=== PATIENT | female | born 1955 | race Caucasian/White ===

== ENCOUNTER → 2017-08-25 | Outpatient (CLI) | payer BC ==
--- NOTE | 2017-08-25 14:14 | MM ---
Reason for exam: additional evaluation requested from prior study. Last mammogram was performed 12 years and 6 months ago. History: Family history of breast cancer. Physical Findings: Nurse did not find any significant physical abnormalities on exam. MG 3D Diag Mammo W/Cad [facility] Bilateral CC and MLO view(s) were taken. Prior study comparison: August 07, 2016, mammogram. February 07, 2015, mammogram, performed at [facility]. The breast tissue is heterogeneously dense. This may lower the sensitivity of mammography. Finding #1: There is a architectural distortion in the right breast, consistent with a known lumpectomy. Finding #2: There are typically benign round calcifications in both breasts. There is a chronic nodularity in the left breast. There is no discrete abnormality. These results were verbally communicated with the patient and result sheet given to the patient on 08/25/17. ASSESSMENT: Benign, BI-RAD 2 RECOMMENDATION: Follow-up diagnostic mammogram of both breasts in 1 year.
== END | disposition home or self-care (01) ==
LOC: RADMAMWWP 12:56
PROVIDERS: ATTEND Obstetrics & Gynecology
DX: Z08 Encounter for follow-up examination after completed treatment for malignant neoplasm (principal); Z85.3 Personal history of malignant neoplasm of breast
CPT/HCPCS: G0204; G0279

== ENCOUNTER → 2018-08-29 | Outpatient (CLI) | payer BC ==
--- NOTE | 2018-08-29 08:43 | MM ---
Reason for exam: additional evaluation requested from prior study. Last mammogram was performed 1 year ago. History: Patient has history of breast cancer at age 50. Family history of breast cancer in aunt at age 30. Malignant lumpectomy of the right breast, 2004. Radiation therapy of the right breast, 2004. Took antineoplastic for 5 years beginning at age 50. Physical Findings: Nurse did not find any significant physical abnormalities on exam. MG 3D Diag Mammo W/Cad [facility] Bilateral CC and MLO view(s) were taken. Prior study comparison: August 25, 2017, bilateral MG 3d diag mammo w/cad [facility]. August 07, 2016, mammogram. The breast tissue is heterogeneously dense. This may lower the sensitivity of mammography. Post surgical and post therapy changes in the right breast. No significant new findings when compared with previous films. These results were verbally communicated with the patient and result sheet given to the patient on 08/29/18. ASSESSMENT: Benign, BI-RAD 2 RECOMMENDATION: Follow-up diagnostic mammogram of both breasts in 1 year.
== END ==
LOC: RADMAMWWP 07:40
PROVIDERS: ATTEND Internal Medicine
DX: R92.8 Other abnormal and inconclusive findings on diagnostic imaging of breast (principal)
CPT/HCPCS: 77062; 77066

== ENCOUNTER → 2019-08-30 | Outpatient (CLI) | payer BC ==
--- NOTE | 2019-08-30 11:14 | MM ---
Reason for exam: additional evaluation requested from prior study. Last mammogram was performed 1 year ago. History: Patient is postmenopausal and has history of breast cancer at age 50. Family history of breast cancer in aunt at age 30. Malignant lumpectomy of the right breast, 2004. Radiation therapy of the right breast, 2004. Took hormonal contraceptives for 8 years. Took antineoplastic for 5 years beginning at age 50. Physical Findings: Nurse Summary: 0.2cm nodule in the right breast at 12 o'clock (nurse alberto). MG 3D Diag Mammo W/Cad [facility] Bilateral CC and MLO view(s) were taken. Prior study comparison: August 29, 2018, bilateral MG 3d diag mammo w/cad [facility]. August 25, 2017, bilateral MG 3d diag mammo w/cad [facility]. The breast tissue is heterogeneously dense. This may lower the sensitivity of mammography. No suspicious abnormality on the left breast. Right post surgical change. Palpable BB marker appears to correspond to a dystrophic calcification. Precautionary ultrasound for the palpable. These results were verbally communicated with the patient and result sheet given to the patient on 08/30/19. ASSESSMENT: Incomplete: need additional imaging evaluation, BI-RAD 0 RECOMMENDATION: Ultrasound of the right breast.
--- NOTE | 2019-08-30 11:16 | USB ---
Reason for exam: additional evaluation requested from abnormal screening. History: Patient is postmenopausal and has history of breast cancer at age 50. Family history of breast cancer in aunt at age 30. Malignant lumpectomy of the right breast, 2004. Radiation therapy of the right breast, 2004. Took hormonal contraceptives for 8 years. Took antineoplastic for 5 years beginning at age 50. US Breast Limited RT Right limited breast ultrasound including focal area of concern, retroareolar and axilla demonstrates calcifications at 12 o'clock palpable, a vascular scar. Calcification corresponds to palpable. No solid or cystic suspicious mass. These results were verbally communicated with the patient and result sheet given to the patient on 08/30/19. ASSESSMENT: Benign, BI-RAD 2 RECOMMENDATION: Follow-up diagnostic mammogram of both breasts in 1 year.
== END ==
LOC: RADMAMWWP 09:02
PROVIDERS: ATTEND Internal Medicine
DX: R92.8 Other abnormal and inconclusive findings on diagnostic imaging of breast (principal)
CPT/HCPCS: 77062; 77066

== ENCOUNTER → 2020-08-16 | Day surgery (SDC) | payer MEDICARE ==
[2020-08-14 14:41] VITALS: BMI 21.9
[~2020-08-16] MED LIST: LACTATED RINGERS 1,000 ML IV SCH; PROPOFOL 10 MG/ML 20 ML VIAL IV ONE
[2020-08-16 08:08] VITALS: TEMP 97.8
--- NOTE | 2020-08-16 08:31 | P.PCN ---
Date of Procedure: 08/16/20 Procedure(s) Performed: BRIEF HISTORY: Patient is a 65-year-old pleasant white female scheduled for an elective colonoscopy as a part of screening for colorectal neoplasia. PROCEDURE PERFORMED: Colonoscopy. PREOPERATIVE DIAGNOSIS: Screening for colon cancer. IV sedation per Anesthesia. PROCEDURE: After informed consent was obtained, the patient, was brought into the endoscopy unit. IV sedation was administered by Anesthesia under continuous monitoring. Digital rectal examination was normal. Initially the Olympus CF-160 flexible video colonoscope was then inserted in the rectum, gradually advanced into the cecum without any difficulty. Careful examination was performed as the scope was gradually being withdrawn. Ileocecal valve and the appendiceal orifice were visualized and appeared normal. Prep was excellent. Mucosa of the cecum, ascending colon, transverse colon, descending colon, sigmoid colon, and rectum appeared normal. Retroflexion was performed in the rectum and small internal hemorrhoids were seen. The patient tolerated the procedure well. IMPRESSION: Normal-appearing colon from rectum to cecum with no evidence of colorectal neoplasia. Small internal hemorrhoids. RECOMMENDATIONS: Findings of this examination were discussed with the patient as well as a family.. She was advised to have a repeat screening colonoscopy in 10 years.
[2020-08-16 09:00] VITALS: BP 123/68; PULSE 62; RESP 16
== END ==
LOC: ORWHC2ENDO 07:50
PROVIDERS: ATTEND Internal Medicine Gastroenterology
DX: Z12.11 Encounter for screening for malignant neoplasm of colon (principal); K64.8 Other hemorrhoids; E78.5 Hyperlipidemia, unspecified; Z79.899 Other long term (current) drug therapy
CPT/HCPCS: J2704; G0121; 45378

== ENCOUNTER → 2020-09-09 | Outpatient (CLI) | payer MEDICARE ==
--- NOTE | 2020-09-09 11:52 | MM ---
Reason for exam: additional evaluation requested from prior study. Last mammogram was performed 1 year ago. History: Patient is postmenopausal and has history of breast cancer at age 50. Family history of breast cancer in aunt at age 30. Malignant lumpectomy of the right breast, 2004. Radiation therapy of the right breast, 2004. Took hormonal contraceptives for 3 years beginning at age 20. Took antineoplastic for 5 years beginning at age 50. Physical Findings: Nurse did not find any significant physical abnormalities on exam. MG 3D Diag Mammo W/Cad [facility] Bilateral CC, MLO, and LM view(s) were taken. CC with magnification view(s) were taken of the right breast. Spot compression MLO and LM with magnification view(s) were taken of the left breast. Prior study comparison: August 30, 2019, bilateral MG 3d diag mammo w/cad [facility]. August 29, 2018, bilateral MG 3d diag mammo w/cad [facility]. The breast tissue is heterogeneously dense. This may lower the sensitivity of mammography. Post surgical and post therapy change right breast. Stable oil cyst calcifications. Small grouped calcifications right upper outer quadrant new from 08/07/16. May have been faintly present in 2017 but have now increased. Possible early oil cyst calcification. Superior asymmetric density left MLO disperses on spot 3D. These results were verbally communicated with the patient and result sheet given to the patient on 09/09/20. ASSESSMENT: Probably benign, BI-RAD 3 RECOMMENDATION: Follow-up diagnostic mammogram of the right breast in 6 months.
== END | disposition home or self-care (01) ==
LOC: RADMAMWWP 10:54
PROVIDERS: ATTEND Internal Medicine
DX: Z08 Encounter for follow-up examination after completed treatment for malignant neoplasm (principal); Z85.3 Personal history of malignant neoplasm of breast
CPT/HCPCS: 77066; G0279; 77062

== ENCOUNTER → 2021-03-12 | Outpatient (CLI) | payer MEDICARE ==
--- NOTE | 2021-03-12 12:05 | MM ---
Reason for exam: follow-up at short interval from prior study. Last mammogram was performed 6 months ago. History: Patient is postmenopausal and has history of breast cancer at age 50. Family history of breast cancer in aunt at age 30. Malignant lumpectomy of the right breast, 2005. Radiation therapy of the right breast, 2004. Took hormonal contraceptives for 3 years beginning at age 20. Took antineoplastic for 5 years beginning at age 50. Physical Findings: Nurse Summary: 0.3cm nodule in the right breast at 12 o'clock (nurse TM). MG 3D Diag Mammo W/Cad RT CC, MLO, and XCCL view(s) were taken of the right breast. Prior study comparison: September 09, 2020, bilateral MG 3d diag mammo w/cad [facility]. August 30, 2019, bilateral MG 3d diag mammo w/cad [facility]. The breast tissue is heterogeneously dense. This may lower the sensitivity of mammography. Right upper outer quadrant calcifications, stable, probably benign, 6 month follow up diagnostic mammogram recommended. Right ultrasound for palpable. These results were verbally communicated with the patient and result sheet given to the patient on 03/12/21. ASSESSMENT: Incomplete: need additional imaging evaluation, BI-RAD 0 RECOMMENDATION: Ultrasound of the right breast. (palpable)
--- NOTE | 2021-03-12 12:07 | USB ---
Reason for exam: additional evaluation requested from abnormal screening. History: Patient is postmenopausal and has history of breast cancer at age 50. Family history of breast cancer in aunt at age 30. Malignant lumpectomy of the right breast, 2004. Radiation therapy of the right breast, 2004. Took hormonal contraceptives for 3 years beginning at age 20. Took antineoplastic for 5 years beginning at age 50. US Breast Limited RT Right limited breast ultrasound including focal area of concern, retroareolar and axilla demonstrates calcifications at 12 o'clock scar at palpable lump on right, benign appearing. Node noted at right axilla. These results were verbally communicated with the patient and result sheet given to the patient on 03/12/21. ASSESSMENT: Probably benign, BI-RAD 3 RECOMMENDATION: Follow-up diagnostic mammogram of both breasts in 6 months.
== END | disposition home or self-care (01) ==
LOC: RADMAMWWP 10:03
PROVIDERS: ATTEND Family Medicine
DX: R92.1 Mammographic calcification found on diagnostic imaging of breast (principal); N63.15 Unspecified lump in the right breast, overlapping quadrants; Z78.0 Asymptomatic menopausal state; Z85.3 Personal history of malignant neoplasm of breast; Z80.3 Family history of malignant neoplasm of breast
CPT/HCPCS: 77065; 76642; G0279; 77061

== ENCOUNTER → 2021-09-10 | Outpatient (CLI) | payer MEDICARE ==
--- NOTE | 2021-09-11 10:03 | MM ---
Reason for exam: follow-up at short interval from prior study. Last mammogram was performed 6 months ago. History: Patient is postmenopausal and has history of breast cancer at age 50. Family history of breast cancer in aunt at age 30. Malignant lumpectomy of the right breast, 2004. Radiation therapy of the right breast, 2004. Took hormonal contraceptives for 3 years beginning at age 20. Took antineoplastic for 5 years beginning at age 50. Physical Findings: Nurse did not find any significant physical abnormalities on exam. MG 3D Diag Mammo W/Cad [facility] Bilateral CC and MLO view(s) were taken. XCCL view(s) were taken of the right breast. Prior study comparison: March 12, 2021, right breast MG 3d diag mammo w/cad RT. September 09, 2020, bilateral MG 3d diag mammo w/cad [facility]. The breast tissue is heterogeneously dense. This may lower the sensitivity of mammography. Asymmetric breast tissue greater in the left breast. No significant new findings when compared with previous films. These results were verbally communicated with the patient and result sheet given to the patient on 09/10/21. ASSESSMENT: Benign, BI-RAD 2 RECOMMENDATION: Routine screening mammogram of both breasts.
== END | disposition home or self-care (01) ==
LOC: RADMAMWWP 10:44
PROVIDERS: ATTEND Family Medicine
DX: C50.919 Malignant neoplasm of unspecified site of unspecified female breast (principal)
CPT/HCPCS: 77066; G0279; 77062

== ENCOUNTER → 2022-09-14 | Outpatient (CLI) | payer MEDICARE ==
--- NOTE | 2022-09-15 18:15 | MM ---
Reason for Exam: Screening (asymptomatic). Last screening mammogram was performed 12 month(s) ago. Patient History: Menarche at age 16. First Full-Term at age 26. Hysterectomy at age 47. Postmenopausal. Breast cancer, age 50. Hormonal Contraceptives, starting at age 20 for 3 years. 2004, Malignant Lumpectomy on the right side. 2004, Radiation Therapy on the right side. Maternal aunt had breast cancer, age 30. Prior Study Comparison: 09/09/2020 Bilateral Diagnostic Mammogram, [facility]. 03/12/2021 Right Diagnostic Mammogram, [facility]. 09/10/2021 Bilateral Diagnostic Mammogram, [facility]. Tissue Density: The breast tissue is heterogeneously dense. This may lower the sensitivity of mammography. Findings: Analyzed By CAD. Postsurgical and posttreatment changes in the right. Some distortion and fat necrosis calcification anteriorly on the right. However, in the area of nodularity is becoming more defined superiorly and there may be increasing nipple retraction is well. Further evaluation recommended. Otherwise, no significant change. Overall Assessment: Incomplete: need additional imaging evaluation, BI-RAD 0 Management: Special View Mammogram of the right breast. Diagnostic Breast Ultrasound of the right breast. Additional views to include spot 3-D CC, spot 3-D MLO, 3-D CC rolled medial, and 3-D lateral views. Also, whole right breast ultrasound, particular attention to the 12:[address] [facility] will attempt to contact patient to return for supplemental views and ultrasound if indicated. Electronically signed and approved by: Anjali Mahoney M.D. Radiologist
== END | disposition home or self-care (01) ==
LOC: RADMAMWWP 16:19
PROVIDERS: ATTEND Family Medicine
DX: Z12.31 Encounter for screening mammogram for malignant neoplasm of breast (principal); Z80.3 Family history of malignant neoplasm of breast; Z78.0 Asymptomatic menopausal state; Z98.890 Other specified postprocedural states
CPT/HCPCS: 77063; 77067

== ENCOUNTER → 2022-09-22 | Outpatient (CLI) | payer MEDICARE ==
--- NOTE | 2022-09-22 10:56 | MM ---
Reason for Exam: Additional evaluation requested from abnormal screening. Last screening mammogram was performed less than 1 month ago. Patient History: Menarche at age 16. First Full-Term at age 26. Hysterectomy at age 47. Postmenopausal. Patient has history of breast feeding. Breast cancer, right, age 50. Previous chest radiation therapy at age 50. Hormonal Contraceptives, starting at age 20 for 3 years. 2004, Malignant Lumpectomy on the right side. 2004, Radiation Therapy on the right side. Maternal aunt had breast cancer, age 30. Prior Study Comparison: 02/17/2005 Right Special View Mammogram, [facility]. 02/07/2015 Screening Mammogram, [facility]. 08/07/2016 Screening Mammogram, Unknown. 08/25/2017 Bilateral Diagnostic Mammogram, [facility]. 08/29/2018 Bilateral Diagnostic Mammogram, [facility]. 08/30/2019 Bilateral Diagnostic Mammogram, [facility]. 08/30/2019 Right Diagnostic Ultrasound, [facility]. 09/09/2020 Bilateral Diagnostic Mammogram, [facility]. 03/12/2021 Right Diagnostic Mammogram, [facility]. 03/12/2021 Right Diagnostic Ultrasound, [facility]. 09/10/2021 Bilateral Diagnostic Mammogram, [facility]. 09/14/2022 Bilateral MG 3D screening mammo w/cad, [facility]. Tissue Density: Right: The breast tissue is heterogeneously dense. This may lower the sensitivity of mammography. Findings: Analyzed By CAD. Distortion upper outer right breast anterior one third is less conspicuous on spot compression imaging. Ultrasound is recommended. Prior lumpectomy changes noted. Overall Assessment: Incomplete: need additional imaging evaluation, BI-RAD 0 Management: Diagnostic Breast Ultrasound of the right breast. A clinical breast exam by your physician is recommended on an annual basis and results should be correlated with mammographic findings. This exam should not preclude additional follow-up of suspicious palpable abnormalities. Results were given to the patient verbally at the time of exam. Electronically signed and approved by: Jamal Garcias M.D. Radiologis
--- NOTE | 2022-09-22 13:17 | USB ---
Patient History: Menarche at age 16. First Full-Term at age 26. Hysterectomy at age 47. Postmenopausal. Patient has history of breast feeding. Breast cancer, right, age 50. Previous chest radiation therapy at age 50. Hormonal Contraceptives, starting at age 20 for 3 years. 2004, Malignant Lumpectomy on the right side. 2004, Radiation Therapy on the right side. Maternal aunt had breast cancer, age 30. Technique: Method: Whole Breast Handheld. Prior Study Comparison: 03/12/2021 Right Diagnostic Mammogram, [facility]. 09/10/2021 Bilateral Diagnostic Mammogram, [facility]. 09/14/2022 Bilateral MG 3D screening mammo w/cad, [facility]. Findings: The whole breast of the right breast, the axilla of the right breast and the retroareolar of the right breast were scanned. No solid or cystic mass is identified. Focal calcification noted.. Overall Assessment: Benign, BI-RAD 2 Management: Diagnostic Mammogram of both breasts in 1 year. A clinical breast exam by your physician is recommended on an annual basis and results should be correlated with mammographic findings. This exam should not preclude additional follow-up of suspicious palpable abnormalities. Results were given to the patient verbally at the time of exam. Electronically signed and approved by: Jamal Garcias M.D. Radiologis
== END | disposition home or self-care (01) ==
LOC: RADMAMWWP 10:16
PROVIDERS: ATTEND Family Medicine
DX: R92.8 Other abnormal and inconclusive findings on diagnostic imaging of breast (principal); Z78.0 Asymptomatic menopausal state; Z80.3 Family history of malignant neoplasm of breast; Z85.3 Personal history of malignant neoplasm of breast; Z92.3 Personal history of irradiation; Z98.890 Other specified postprocedural states
CPT/HCPCS: 77065; 76641; G0279; 77061

== ENCOUNTER → 2023-09-15 | Outpatient (CLI) | payer MEDICARE ==
--- NOTE | 2023-09-15 08:16 | MM ---
Reason for Exam: Follow-up at short interval from prior study. Last screening mammogram was performed 12 month(s) ago. Patient History: Menarche at age 16. First Full-Term at age 26. Hysterectomy at age 47. Postmenopausal. Patient has history of breast feeding. Breast cancer, right, age 50. Previous chest radiation therapy at age 50. Hormonal Contraceptives, starting at age 20 for 3 years. 2004, Malignant Lumpectomy on the right side. 2004, Radiation Therapy on the right side. Maternal aunt had breast cancer, age 30. Prior Study Comparison: 02/07/2015 Screening Mammogram, [facility]. 09/14/2022 Bilateral MG 3D screening mammo w/cad, [facility]. 09/22/2022 Right MG 3D work up w/cad RT, [facility]. 09/22/2022 Right US breast workup RT, [facility]. Tissue Density: There are scattered fibroglandular densities. Findings: Analyzed By CAD. Pattern appears stable. Postsurgical changes are within the right breast. Benign-appearing calcifications are within the right breast. Previous subareolar density is not reproduced on the current examination. No suspicious groups of microcalcifications, spiculated or lobular masses, architectural distortion or other secondary signs of malignancy are mammographically apparent. Overall Assessment: Benign, BI-RAD 2 Management: Screening Mammogram of both breasts in 1 year. A negative mammogram report should not preclude additional follow up of suspicious palpable abnormalities. Patient should continue monthly self breast exam. A clinical breast exam by your physician is recommended on an annual basis and results should be correlated with mammographic findings. Electronically signed and approved by: Gopal George D.O. Radiologis
--- NOTE | 2023-09-15 19:31 | BD ---
EXAMINATION TYPE: Axial Bone Density DATE OF EXAM: 09/15/2023 CLINICAL HISTORY: 68 years old Female. ICD-10 CODE: M85.88 Osteoporosis Height: 64.3 Weight: 135 FRAX RISK QUESTIONS: Family History (Parent hip fracture): yes, no fxs History of Fracture in Adulthood: yes RISK FACTORS HISTORY OF: History of Wrist Fracture: yes, both in her 60s Surgery to hips, bilat hip replacements, Family History of Osteoporosis: yes, both sisters and her mother Postmenopausal woman: yes, at 51 yrs old Hyperparathyroidism: no Adrenal Insufficiency: no MEDICATIONS: Additional Medications: statins for cholesterol, vit d and calcium Additional History: cholesterol, both wrists broken in the past and both hips replaced, scanned only lumbar spine. EXAM MEASUREMENTS: Bone mineral densitometry was performed using the [employer] System. Bone mineral density as measured about the Lumbar spine is: ----- L1-L4(G/cm2): 0.966 T Score Values are as follows: ----- L1: -1.9 ----- L2: -2.7 ----- L3: -1.5 ----- L4: -1.4 ----- L1-L4: -1.8 Z Score Values are as follows: ----- L1: -0.1 ----- L2: -0.9 ----- L3: 0.3 ----- L4: 0.4 ----- L1-L4: 0.0 Bone mineral density is the first bone density for pt at [facility]. both hips replaced...not scanned both wrists broken as an adult, not scanned and therefor no FRAX percentage. IMPRESSION: Osteopenia (T Score between -2.5 and -1). There is slightly increased risk of fracture and the patient may be considered for treatment. Re-Screen 2-5 years. NOTE: T-SCORE=SD OF THE YOUNG ADULT MEAN.
== END | disposition home or self-care (01) ==
LOC: RADMAMWWP 07:10
PROVIDERS: ATTEND Family Medicine
DX: M85.88 Other specified disorders of bone density and structure, other site (principal); M81.0 Age-related osteoporosis without current pathological fracture; R92.323 Mammographic fibroglandular density, bilateral breasts; Z78.0 Asymptomatic menopausal state; Z80.3 Family history of malignant neoplasm of breast; Z85.3 Personal history of malignant neoplasm of breast
CPT/HCPCS: 77080; 77066; G0279; 77062

== ENCOUNTER → 2023-11-08 | Outpatient (CLI) | payer MEDICARE ==
[2023-11-08 12:01] LABS: Basophils # (A) 0.09 X 10*3/uL (0.00-0.10); Basophils % (A) 2.1 %; Eosinophils # (A) 0.28 X 10*3/uL (0.04-0.35); Eosinophils % (A) 6.6 %; HCT 40.6 % (37.2-46.3); Immature Grans, Automated 0 %; Lymphocytes # (A) 1.83 X 10*3/uL (0.90-5.00); Lymphocytes % (A) 43.3 %; MCH 28.8 pg (27.0-32.0); MCV 89.8 FL (80.0-97.0); Mean Platelet Volume 11.1 FL (9.5-12.2); Monocytes # (A) 0.32 X 10*3/uL (0.20-1.00); Monocytes % (A) 7.6 %; NRBC Per 100 WBC 0 X 10*3/uL (0.00-0.01); Neutrophils # (A) 1.71 X 10*3/uL (1.80-7.70); Neutrophils % (A) 40.4 %; Platelet Count 261 X 10*3/uL (140-440); RBC 4.52 X 10*6/uL (4.10-5.20); RDW 14.9 % (11.5-14.5); WBC 4.23 X 10*3/uL (4.50-10.00)
[2023-11-08 12:30] LABS: ALT 20 U/L (8-44); AST 22 U/L (13-35); Albumin 4.5 g/dL (3.8-4.9); Albumin/Globulin Ratio 1.96 Ratio (1.60-3.17); Alkaline Phosphatase 47 U/L (41-126); BUN/Creat Ratio 14.71 Ratio (12.00-20.00); Blood Urea Nitrogen 10.3 mg/dL (9.0-27.0); Calcium 9.3 mg/dL (8.7-10.3); Carbon Dioxide 26.3 mmol/L (21.6-31.8); Chloride 106 mmol/L (96-109); Globulin 2.3 g/dL (1.6-3.3); Glucose 93 mg/dL (70-110); LDL Cholesterol,Calculated 82.6 mg/dL (0.0-131.0); Potassium 3.9 mmol/L (3.5-5.5); Sodium 142 mmol/L (135-145); Total Bilirubin 0.4 mg/dL (0.3-1.2); Total Protein 6.8 g/dL (6.2-8.2); VLDL Calculation 8.44 mg/dL (5.00-40.00)
== END | disposition home or self-care (01) ==
LOC: LABWHC1 08:18
PROVIDERS: ATTEND Family Medicine
DX: M85.80 Other specified disorders of bone density and structure, unspecified site (principal); Z79.899 Other long term (current) drug therapy; Z82.49 Family history of ischemic heart disease and other diseases of the circulatory system
CPT/HCPCS: 36415; 80053; 80061; 82306; 83036; 84443; 85025

== ENCOUNTER → 2024-09-18 | Outpatient (CLI) | payer MEDICARE ==
--- NOTE | 2024-09-25 10:13 | MM ---
Reason for Exam: Screening (asymptomatic). Last screening mammogram was performed 12 month(s) ago. Patient History: Menarche at age 16. First Full-Term at age 26. Hysterectomy at age 47. Postmenopausal. Patient has history of breast feeding. Breast cancer, right, age 50. Previous chest radiation therapy at age 50. Hormonal Contraceptives, starting at age 20 for 3 years. 2004, Malignant Lumpectomy on the right side. 2004, Radiation Therapy on the right side. Maternal aunt had breast cancer, age 30. Prior Study Comparison: 09/14/2022 Bilateral MG 3D screening mammo w/cad, [facility]. 09/22/2022 Right MG 3D work up w/cad RT, [facility]. 09/15/2023 Bilateral MG 3D diag mammo w/cad [facility], [facility]. Tissue Density: The breasts are heterogeneously dense, which may obscure small masses. Findings: Analyzed By CAD. Right breast: There is no suspicious group of microcalcifications or new suspicious mass. Benign-appearing calcifications right breast. Left breast: There is no suspicious group of microcalcifications or new suspicious mass. Overall Assessment: Benign, BI-RAD 2 Management: Screening Mammogram of both breasts in [address] [facility] will attempt to contact patient to return for supplemental views and ultrasound if indicated. Patient should continue monthly self-breast exams. A clinical breast exam by your physician is recommended on an annual basis. This exam should not preclude additional follow-up of suspicious palpable abnormalities. Note on Janey scores and lifetime risk: 1. A Janey score greater than 3% is considered moderate risk. If this is the case, consider specialist referral to assess eligibility for a risk reducing agent. 2. If overall lifetime risk for the development of breast cancer is 20% or higher, the patient may qualify for future screening with alternating mammogram and breast MRI. [facility], , 09/25/2024 10:03 AM. Electronically signed and approved by: Miguelito Figueroa DO
== END | disposition home or self-care (01) ==
LOC: RADMAMWWP 14:54
PROVIDERS: ATTEND Family Medicine
DX: Z12.31 Encounter for screening mammogram for malignant neoplasm of breast (principal); R92.333 Mammographic heterogeneous density, bilateral breasts; Z78.0 Asymptomatic menopausal state; Z80.3 Family history of malignant neoplasm of breast; Z92.3 Personal history of irradiation
CPT/HCPCS: 77063; 77067